=== PATIENT | male | born 1950 | race Caucasian/White ===

== ENCOUNTER → 2021-06-04 | Day surgery (SDC) | payer MEDICARE, OTHER ==
[~2021-06-04] VITALS: Ht 182.9 cm; Wt 80.7 kg
[~2021-06-04] MED LIST: ASPIRIN325 MG PO; CELEXA10 MG PO; CHLORTHALIDONE25 MG PO; LIPITOR40 MG PO; LISINOPRIL2.5 MG PO; MAG-OXIDE 400M400 MG PO; METFORMIN HCL500 MG PO; MULTI-VITAMIN1 EACH PO; VITAMIN B122500 MCG PO; VITAMIN D325 MC1 PO
[2021-06-04 08:15] LABS: HCT 34.6 % (42.0-52.0); HGB 11.2 g/dl (13.2-18.0); MCH 29.1 pg (25.0-31.0); MCHC 32.4 g/dL (32.0-36.0); MCV 89.9 fL (78.0-100.0); RBC 3.85 M/uL (4.70-6.00); RDW 14.4 % (11.5-14.0); WBC 7.5 K/uL (4.0-10.5)
[2021-06-04 08:36] LABS: ALBUMIN 3.3 g/dL (3.4-5.0); BILIRUBIN - TOTAL 0.5 mg/dL (0.2-1.0); BUN/CREAT RATIO (CALC) 25.2 RATIO; CREATININE 1.19 mg/dL (0.67-1.17); GLOBULIN (CALCULATION) 3.9 g/dL; POTASSIUM 3.6 mmol/L (3.5-5.1); TOTAL PROTEIN 7.2 g/dL (6.4-8.2)
== END | disposition home or self-care (01) ==
LOC: FAS 05-21 09:00
PROVIDERS: Surgery
DX: D64.9 Anemia, unspecified (principal); I10 Essential (primary) hypertension; E11.9 Type 2 diabetes mellitus without complications; Z85.46 Personal history of malignant neoplasm of prostate; Z86.73 Personal history of transient ischemic attack (TIA), and cerebral infarction without residual deficits; Z79.82 Long term (current) use of aspirin
CPT/HCPCS: 36415; 80053; J1642; J2704; J7120